=== PATIENT | female | born 1935 | race African-American/Black ===

== ENCOUNTER 2017-04-01 14:17 | Inpatient (IN) | payer MEDICARE, MEDICAID ==
[~2017-04-01] VITALS: Ht 170.2 cm; Wt 88.0 kg
[~2017-04-01 14:17] MED LIST: AMLO10TA80 PO; ATOR20TA65 PO
[2017-04-01 15:17] LABS: BASOPHILS % 1.3 % (0.0-2.0); EOSINOPHILS % 1.8 % (0.0-5.0); HEMATOCRIT. 32.6 % (36.0-48.0); HEMOGLOBIN. 10.6 g/dL (12.0-16.0); LYMPHOCYTES % 42.3 % (20.0-50.0); MEAN CORPUSCULAR HEMOGLOBIN 27.1 pg (28.0-32.0); MEAN CORPUSCULAR VOLUME 82.9 fL (81.0-99.0); MEAN PLATELET VOLUME 7.9 fl (7.4-10.4); MONOCYTES % 7.2 % (2.0-8.0); NEUTROPHILS % 47.4 % (40.0-76.0); PLATELET 235 x1000/uL (130-400); RED BLOOD CELL COUNT 3.93 mill/uL (4.2-5.4); RED CELL DISTRIBUTION WIDTH 15.3 % (11.6-14.6)
[2017-04-01 15:19] LABS: INR 1.1; PROTHROMBIN TIME 10.9 sec (9.4-11.6)
[2017-04-01 15:29] LABS: CARBON DIOXIDE 25 mEq/L (21-32); CHLORIDE 109 mEq/L (98-107); TROPONIN I < 0.02 ng/mL (0.00-0.04)
[2017-04-01] MEDS ORDERED: ASPIRIN 325MG EC TABLET PO ONE (15:45)
[2017-04-01] MEDS ORDERED: ONDANSETRON HCL 4MG/2ML VIAL IV PRN (17:15)
[2017-04-01] MEDS ORDERED: ACETAMINOPHEN 325MG TABLET PO PRN (17:15)
[2017-04-01] MEDS: CLONIDINE 0.1MG TABLET PO PRN (18:05)
[2017-04-01 20:00] VITALS: BP_SYST 141; BP_SYST 147; BP_DIAS 80; BP_DIAS 86
[2017-04-01] MEDS: ENOXAPARIN 40MG/0.4ML SYR SUBCUT SCH (20:50)
[2017-04-02] VITALS: BP 122/77
[2017-04-02 04:00] VITALS: BP 156/89
[2017-04-02] MEDS ORDERED: LATA2.5D2 RIGHTEYE (04:40)
[2017-04-02] MEDS ORDERED: BRIM15DR2 EACHEYE (04:40)
[2017-04-02 06:32] LABS: BASOPHILS % 0.6 % (0.0-2.0); EOSINOPHILS % 1.8 % (0.0-5.0); HEMATOCRIT. 32.6 % (36.0-48.0); HEMOGLOBIN. 10.7 g/dL (12.0-16.0); LYMPHOCYTES % 44.7 % (20.0-50.0); MEAN CORPUSCULAR HEMOGLOBIN 27.1 pg (28.0-32.0); MEAN CORPUSCULAR VOLUME 82.7 fL (81.0-99.0); MONOCYTES % 7.4 % (2.0-8.0); NEUTROPHILS % 45.5 % (40.0-76.0); PLATELET 232 x1000/uL (130-400); RED BLOOD CELL COUNT 3.94 mill/uL (4.2-5.4); RED CELL DISTRIBUTION WIDTH 15.5 % (11.6-14.6)
[2017-04-02 06:46] LABS: CARBON DIOXIDE 25 mEq/L (21-32); CHLORIDE 106 mEq/L (98-107); CREATINE KINASE 83 IU/L (26-192); TROPONIN I < 0.02 ng/mL (0.00-0.04)
[2017-04-02 07:02] LABS: CREATINE KINASE MB FRACTION 0.6 ng/mL (0.5-3.6)
[2017-04-02 08:00] VITALS: BP 144/91
[2017-04-02] MEDS: ASPIRIN 81MG TABLET PO SCH (08:33)
[2017-04-02] MEDS: CLONIDINE 0.1MG TABLET PO PRN (08:36)
[2017-04-02] MEDS ORDERED: DOBUTAMINE 250MG PREMIX 250 ML IV ONE (11:30)
[2017-04-02] MEDS: AMLODIPINE 5MG TABLET PO SCH ×2 (11:58→20:31)
[2017-04-02 12:00] VITALS: BP 123/71
[2017-04-02 16:00] VITALS: BP 145/76
[2017-04-02 20:00] VITALS: BP 134/80
[2017-04-02] MEDS: ENOXAPARIN 40MG/0.4ML SYR SUBCUT SCH (20:30)
[2017-04-02] MEDS ORDERED: ATORVASTATIN CALCIUM 20MG TABLET PO SCH (21:00)
[2017-04-03] VITALS: BP 137/75
[2017-04-03 04:00] VITALS: BP 125/80
[2017-04-03 06:31] LABS: BASOPHILS % 0.6 % (0.0-2.0); EOSINOPHILS % 2.9 % (0.0-5.0); HEMATOCRIT. 33.8 % (36.0-48.0); HEMOGLOBIN. 11.1 g/dL (12.0-16.0); LYMPHOCYTES % 44.4 % (20.0-50.0); MEAN CORPUSCULAR HEMOGLOBIN 27.3 pg (28.0-32.0); MEAN CORPUSCULAR VOLUME 83.5 fL (81.0-99.0); MEAN PLATELET VOLUME 8.1 fl (7.4-10.4); MONOCYTES % 7.5 % (2.0-8.0); NEUTROPHILS % 44.6 % (40.0-76.0); PLATELET 216 x1000/uL (130-400); RED BLOOD CELL COUNT 4.05 mill/uL (4.2-5.4); RED CELL DISTRIBUTION WIDTH 15.6 % (11.6-14.6)
[2017-04-03] MEDS: CLONIDINE 0.1MG TABLET PO PRN (07:33)
[2017-04-03 08:00] VITALS: BP 154/94
[2017-04-03] MEDS ORDERED: DOBUTAMINE 250MG PREMIX 250 ML IV ONE (08:22)
[2017-04-03] MEDS: ASPIRIN 81MG TABLET PO SCH (09:42)
[2017-04-03] MEDS: AMLODIPINE 5MG TABLET PO SCH (09:42)
[2017-04-03 11:36] VITALS: BP 126/71
== END 2017-04-03 12:20 | disposition home or self-care (01) | DRG 206 ==
LOC: ER 14:17 → 8WST 16:42 → EDBEDREQTM 16:48 → EDBEDREQ 16:48 → ENRESERV 17:32
PROVIDERS: ADMIT Internal Medicine Nephrology; ATTEND Internal Medicine Nephrology
DX: M94.0 Chondrocostal junction syndrome [Tietze] (principal); E44.0 Moderate protein-calorie malnutrition; E11.9 Type 2 diabetes mellitus without complications; I10 Essential (primary) hypertension; K59.00 Constipation, unspecified; E78.00 Pure hypercholesterolemia, unspecified; E78.5 Hyperlipidemia, unspecified; E66.9 Obesity, unspecified; G43.909 Migraine, unspecified, not intractable, without status migrainosus; J45.909 Unspecified asthma, uncomplicated; N95.1 Menopausal and female climacteric states; H40.9 Unspecified glaucoma; D22.9 Melanocytic nevi, unspecified; H26.9 Unspecified cataract; Z68.30 Body mass index [BMI] 30.0-30.9, adult; I83.90 Asymptomatic varicose veins of unspecified lower extremity; M19.90 Unspecified osteoarthritis, unspecified site; Z79.899 Other long term (current) drug therapy; Z98.51 Tubal ligation status; Z85.038 Personal history of other malignant neoplasm of large intestine; Z85.828 Personal history of other malignant neoplasm of skin; Z83.3 Family history of diabetes mellitus; Z82.49 Family history of ischemic heart disease and other diseases of the circulatory system
CPT/HCPCS: 36415; 71010; 78452; 80048; 80053; 80061; 81025; 82550; 82553; 83880; 84484; 85025; 85610; 85651; 93005; 93017; 93306; 99285; A9500; J1250; J1650

== ENCOUNTER → 2018-10-12 | Outpatient (CLI) | payer MEDICARE, MEDICAID ==
[~2018-10-12] MED LIST changes: +BRIM15DR2 EACHEYE; +LATA2.5D2 RIGHTEYE
== END | disposition home or self-care (01) ==
LOC: US 09:28
PROVIDERS: ATTEND Specialist
DX: N28.1 Cyst of kidney, acquired (principal)
CPT/HCPCS: 76770

== ENCOUNTER 2018-12-03 06:15 | Day surgery (SDC) | payer MEDICARE, MEDICAID ==
[~2018-12-03] VITALS: Ht 165.1 cm; Wt 83.5 kg
[2018-12-03] MEDS ORDERED: SKIN ADHESIVE 0.7 GM EA TOP ONE (07:48)
[2018-12-03] MEDS ORDERED: BUPIVACAINE HCL/PF 0.5% (5MG/ML) 10ML ONE (07:48)
[2018-12-03] MEDS ORDERED: ASPI-1393 PO (07:57)
[2018-12-03] MEDS ORDERED: ALBU90AE IH (07:57)
[2018-12-03] MEDS ORDERED: BECL10.6 IH (07:57)
[2018-12-03] MEDS ORDERED: HYDROMORPHONE HCL/PF 2MG/ML CPJ IV PRN (10:15)
== END 2018-12-03 11:30 | disposition home or self-care (01) ==
LOC: OR 06:15
PROVIDERS: ATTEND Surgery
DX: C76.51 Malignant neoplasm of right lower limb (principal); I12.9 Hypertensive chronic kidney disease with stage 1 through stage 4 chronic kidney disease, or unspecified chronic kidney disease; N18.3 Chronic kidney disease, stage 3 (moderate); J45.909 Unspecified asthma, uncomplicated; I44.7 Left bundle-branch block, unspecified; E78.00 Pure hypercholesterolemia, unspecified; K21.9 Gastro-esophageal reflux disease without esophagitis; Z79.899 Other long term (current) drug therapy; Z72.89 Other problems related to lifestyle; Z82.49 Family history of ischemic heart disease and other diseases of the circulatory system; Z82.61 Family history of arthritis; Z82.5 Family history of asthma and other chronic lower respiratory diseases; Z87.891 Personal history of nicotine dependence; Z79.82 Long term (current) use of aspirin
CPT/HCPCS: 27337; 88304; C1893; J3490; J7120

== ENCOUNTER 2022-09-21 16:50 | Inpatient (IN) | payer MEDICARE, MEDICAID ==
[~2022-09-21] VITALS: Ht 165.1 cm; Wt 81.6 kg
[~2022-09-21 16:50] MED LIST changes: +ALBU90AE IH; +ASPI-1497 PO; +BECL10.6 IH; +LATA2.5D14 RIGHTEYE; -LATA2.5D2 RIGHTEYE
[2022-09-21] MEDS ORDERED: ONDANSETRON HCL 4MG/2ML INJ IV NR (17:30)
[2022-09-21] MEDS ORDERED: SODIUM CHLORIDE 0.9% 1,000 ML IV ONE (17:30)
[2022-09-21 17:46] LABS: BASOPHILS % 0.2 % (0.0-2.0); HEMATOCRIT. 37.7 % (36.0-48.0); HEMOGLOBIN. 12.7 g/dL (12.0-16.0); LYMPHOCYTES % 17.1 % (20.0-50.0); MEAN CORPUSCULAR HEMOGLOBIN 27.9 pg (28.0-32.0); MEAN CORPUSCULAR VOLUME 82.8 fL (81.0-99.0); MEAN PLATELET VOLUME 7.7 fl (7.4-10.4); MONOCYTES % 10.6 % (2.0-8.0); NEUTROPHILS % 72.1 % (40.0-76.0); PLATELET 260 x1000/uL (130-400); RED BLOOD CELL COUNT 4.56 mill/uL (4.2-5.4); RED CELL DISTRIBUTION WIDTH 14.8 % (11.6-14.6)
[2022-09-21 17:59] LABS: CHLORIDE 99 mEq/L (98-107)
[2022-09-21] MEDS ORDERED: ENOXAPARIN 100MG/ML SYR SUBCUT ONE (19:30)
[2022-09-21] MEDS ORDERED: ASPIRIN 81MG TABLET PO SCH (19:30)
[2022-09-21] MEDS ORDERED: IPRATROPIUM/ALBUTEROL 0.5-3(2.5)MG/3ML NEB NEB PRN (22:45)
[2022-09-21] MEDS ORDERED: ONDANSETRON HCL 4MG/2ML INJ IV PRN (22:45)
[2022-09-21] MEDS ORDERED: DEXTROSE 50% WATER 50ML SYRINGE IV PRN (22:45)
[2022-09-21] MEDS ORDERED: MORPHINE SULFATE 2 MG/ML CPJ (NOT FOR IM USE) IV PRN (22:45)
[2022-09-21] MEDS ORDERED: HYDRALAZINE 20MG/ML VIAL IV SCH (23:03)
[2022-09-22] VITALS (7 sets, daily range): BP systolic 142–164; BP diastolic 77–98
[2022-09-22 00:30] LABS: AMYLASE 119 IU/L (25-115)
[2022-09-22] MEDS ORDERED: AMLO5TAB88 PO (01:10)
[2022-09-22] MEDS: DEXT 5%/0.9% NACL 1,000 ML IV SCH ×4 (02:36→22:31)
[2022-09-22] MEDS: HYDRALAZINE 20MG/ML VIAL IV SCH ×4 (05:12→23:47)
[2022-09-22 06:12] LABS: BASOPHILS % 0.2 % (0.0-2.0); HEMATOCRIT. 36.1 % (36.0-48.0); HEMOGLOBIN. 11.9 g/dL (12.0-16.0); LYMPHOCYTES % 18.2 % (20.0-50.0); MEAN CORPUSCULAR HEMOGLOBIN 27.6 pg (28.0-32.0); MEAN CORPUSCULAR VOLUME 84.1 fL (81.0-99.0); MEAN PLATELET VOLUME 8.6 fl (7.4-10.4); MONOCYTES % 11.2 % (2.0-8.0); NEUTROPHILS % 70.4 % (40.0-76.0); PLATELET 251 x1000/uL (130-400); RED BLOOD CELL COUNT 4.29 mill/uL (4.2-5.4)
[2022-09-22 06:19] LABS: CHLORIDE 101 mEq/L (98-107)
[2022-09-22 06:35] LABS: CREATINE KINASE 55 IU/L (26-192); CREATINE KINASE MB FRACTION 2.3 ng/mL (0.5-3.6); HDL CHOLESTEROL 82 mg/dL (40-59); LDL CHOLESTEROL 115 mg/dL (5-100); T4 FREE 1.19 ng/dL (0.76-1.46)
[2022-09-22] MEDS: BLOOD SUGAR DIAGNOSTIC STRIP TEST SCH ×4 (06:38→20:18)
[2022-09-22] MEDS: PANTOPRAZOLE SODIUM 40 MG/VIAL IV SCH (08:53)
[2022-09-22] MEDS ORDERED: ENOXAPARIN 40MG/0.4ML SYR SUBCUT SCH (09:00)
[2022-09-22] MEDS ORDERED: DIFL5DRO6 (11:09)
[2022-09-22] MEDS ORDERED: BRIM5DRO6 EACHEYE (11:09)
[2022-09-22] MEDS ORDERED: DORZ10DR9 EACHEYE (11:09)
[2022-09-22 12:43] LABS: CLARITY URINE CLEAR (CLEAR); COLOR URINE YELLOW (YELLOW); KETONES URINE 1+ (NEGATIVE); LEUKOCYTE ESTERASE URINE NEGATIVE (NEGATIVE); NITRITE URINE NEGATIVE (NEGATIVE); OCCULT BLOOD URINE NEGATIVE (NEGATIVE); PROTEIN URINE 1+ (NEGATIVE); SPECIFIC GRAVITY URINE 1.022 (1.005-1.030); UROBILINOGEN URINE 0.2 E.U./dL (0.2-1.0)
[2022-09-22] MEDS ORDERED: ALBUTEROL (0.083%) 2.5MG/3ML NEB HHN PRN (16:45)
[2022-09-22] MEDS ORDERED: IPRATROPIUM BROMIDE (0.02%) 0.5MG/2.5ML NEB HHN PRN (16:45)
[2022-09-22] MEDS ORDERED: NALOXONE HCL 0.4MG/ML VIAL IV PRN (16:45)
[2022-09-22 20:03] LABS: CREATINE KINASE MB FRACTION 1.8 ng/mL (0.5-3.6)
[2022-09-23] VITALS: BP 152/83
[2022-09-23 04:00] VITALS: BP 158/87
[2022-09-23] MEDS: HYDRALAZINE 20MG/ML VIAL IV SCH ×4 (05:27→23:58)
[2022-09-23] MEDS: BLOOD SUGAR DIAGNOSTIC STRIP TEST SCH ×4 (06:17→20:12)
[2022-09-23] MEDS: DEXT 5%/0.9% NACL 1,000 ML IV SCH ×2 (06:43→17:00)
[2022-09-23 08:00] VITALS: BP 142/71
[2022-09-23] MEDS: ENOXAPARIN 30MG/0.3ML SYR SUBCUT SCH (08:59)
[2022-09-23] MEDS: PANTOPRAZOLE SODIUM 40 MG/VIAL IV SCH (08:59)
[2022-09-23] MEDS ORDERED: KETOROLAC 15MG/ML VIAL IV PRN (10:30)
[2022-09-23] MEDS ORDERED: ACETAMINOPHEN 650MG SUPP PR PRN (10:30)
[2022-09-23 12:00] VITALS: BP 155/96
[2022-09-23 16:00] VITALS: BP 168/93
[2022-09-23 20:00] VITALS: BP 150/89
[2022-09-24] VITALS: BP 170/92
[2022-09-24] MEDS: DEXT 5%/0.9% NACL 1,000 ML IV SCH ×3 (01:04→16:55)
[2022-09-24 04:00] VITALS: BP 176/95
[2022-09-24] MEDS: HYDRALAZINE 20MG/ML VIAL IV SCH ×3 (05:06→18:47)
[2022-09-24] MEDS: BLOOD SUGAR DIAGNOSTIC STRIP TEST SCH ×4 (05:49→21:00)
[2022-09-24 08:00] VITALS: BP 154/84
[2022-09-24] MEDS: FAMOTIDINE 20MG/2ML VIAL IV SCH (08:48)
[2022-09-24] MEDS: ENOXAPARIN 30MG/0.3ML SYR SUBCUT SCH (08:49)
[2022-09-24 12:00] VITALS: BP 157/91
[2022-09-24 16:00] VITALS: BP 156/87
[2022-09-24 20:00] VITALS: BP 160/80
[2022-09-25] VITALS: BP 150/71
[2022-09-25] MEDS: HYDRALAZINE 20MG/ML VIAL IV SCH ×4 (01:12→17:57)
[2022-09-25] MEDS: DEXT 5%/0.9% NACL 1,000 ML IV SCH ×3 (02:19→17:57)
[2022-09-25 04:00] VITALS: BP 150/90
[2022-09-25] MEDS: BLOOD SUGAR DIAGNOSTIC STRIP TEST SCH ×4 (06:01→21:55)
[2022-09-25] MEDS: ENOXAPARIN 30MG/0.3ML SYR SUBCUT SCH (09:34)
[2022-09-25] MEDS: FAMOTIDINE 20MG/2ML VIAL IV SCH (09:34)
[2022-09-25 11:29] VITALS: BP 169/96
[2022-09-25] MEDS ORDERED: *PATIENT'S OWN MEDICATION STORAGE XX SCH (12:45)
[2022-09-25 16:00] VITALS: BP 152/80
[2022-09-25] MEDS: BRIMONIDINE 0.2% OPHTH DROPS 5ML BOTHEYE SCH (17:57)
[2022-09-25] MEDS: DORZOLAMIDE 2% OPHTH 10 ML BOTTLE BOTHEYE SCH (17:57)
[2022-09-25 20:00] VITALS: BP 169/96
[2022-09-26] VITALS: BP 159/92
[2022-09-26] MEDS: HYDRALAZINE 20MG/ML VIAL IV SCH ×2 (00:55→06:47)
[2022-09-26 04:00] VITALS: BP 148/88
[2022-09-26] MEDS: BLOOD SUGAR DIAGNOSTIC STRIP TEST SCH ×4 (06:46→22:17)
[2022-09-26] MEDS: DEXT 5%/0.9% NACL 1,000 ML IV SCH ×2 (06:50→09:36)
[2022-09-26 08:00] VITALS: BP 161/88
[2022-09-26] MEDS: FAMOTIDINE 20MG/2ML VIAL IV SCH (08:02)
[2022-09-26] MEDS: DORZOLAMIDE 2% OPHTH 10 ML BOTTLE BOTHEYE SCH ×2 (09:31→17:48)
[2022-09-26] MEDS: ENOXAPARIN 30MG/0.3ML SYR SUBCUT SCH (09:32)
[2022-09-26] MEDS: BRIMONIDINE 0.2% OPHTH DROPS 5ML BOTHEYE SCH ×2 (09:32→17:48)
[2022-09-26] MEDS: AMLODIPINE 10MG TABLET PO SCH (15:27)
[2022-09-26] MEDS ORDERED: DIATR MEGLU/DIATRIZOATE SOLN 120ML ONE (15:33)
[2022-09-26 20:00] VITALS: BP 156/96
[2022-09-27] VITALS: BP 147/81
[2022-09-27 04:00] VITALS: BP 198/108
[2022-09-27 05:00] VITALS: BP 158/79
[2022-09-27] MEDS: BLOOD SUGAR DIAGNOSTIC STRIP TEST SCH ×2 (06:26→11:40)
[2022-09-27 08:03] VITALS: BP 155/83
[2022-09-27] MEDS: FAMOTIDINE 20MG/2ML VIAL IV SCH (08:51)
[2022-09-27] MEDS: ENOXAPARIN 30MG/0.3ML SYR SUBCUT SCH (08:52)
[2022-09-27] MEDS: BRIMONIDINE 0.2% OPHTH DROPS 5ML BOTHEYE SCH (08:52)
[2022-09-27] MEDS: AMLODIPINE 10MG TABLET PO SCH (08:52)
[2022-09-27] MEDS: DORZOLAMIDE 2% OPHTH 10 ML BOTTLE BOTHEYE SCH (08:53)
[2022-09-27 11:25] VITALS: BP 155/85
[2022-09-27 12:21] VITALS: BP 134/94
== END 2022-09-27 13:45 | disposition home health service (06) | DRG 388 ==
LOC: ER 16:50 → 7EST 19:47 → ENRESERV 21:31
PROVIDERS: ADMIT Internal Medicine; ATTEND Internal Medicine
DX: K56.609 Unspecified intestinal obstruction, unspecified as to partial versus complete obstruction (principal); N17.0 Acute kidney failure with tubular necrosis; I16.1 Hypertensive emergency; K56.7 Ileus, unspecified; I11.0 Hypertensive heart disease with heart failure; I50.9 Heart failure, unspecified; I27.20 Pulmonary hypertension, unspecified; R73.03 Prediabetes; N28.1 Cyst of kidney, acquired; E78.00 Pure hypercholesterolemia, unspecified; R73.9 Hyperglycemia, unspecified; Z85.038 Personal history of other malignant neoplasm of large intestine; Z83.3 Family history of diabetes mellitus; Z82.49 Family history of ischemic heart disease and other diseases of the circulatory system
CPT/HCPCS: 36415; 71045; 74018; 74176; 74250; 80053; 80061; 81003; 82150; 82550; 82553; 82570; 82962; 83036; 83605; 83615; 83880; 84300; 84439; 84443; 84484; 85025; 85379; 93005; 93306; 93970; 97162; 99285; C1893; C9113; J0360; J1650; J2270; J2405; J3490; J7042; Q9963